=== PATIENT | female | born 1980 | race Caucasian/White ===

== ENCOUNTER 2017-12-21 16:59 | Emergency (ER) | payer OTHER ==
[~2017-12-21 16:59] MED LIST: ISOVUE-370 76%-LOCM 1 ML ONE
[2017-12-21 17:23] LABS: #Basophils 0.1 thou/uL (0.0-0.2); #Eosinphils 0.1 thou/uL (0.0-0.7); #Lymphocytes 1.7 thou/uL (1.20-3.40); #Monocytes 0.4 thou/uL (0.11-0.59); #Neutrophils 4.9 thou/uL (1.40-6.50); %Basophils 0.7 % (0.0-1.0); %Eosinophils 1.7 % (0.0-10.0); %Lymphocytes 23.2 % (21.0-51.0); %Monocytes 6.1 % (0.0-10.0); %Neutrophils 68.3 % (42.0-75.0); Hemoglobin 13.2 g/dL (12.0-16.0); Mean Corpuscular HGB CONC 33.7 g/dL (32.0-36.0); Mean Corpuscular Hemoglobin 30.1 pg (27.0-31.0); Mean Corpuscular Volume 89.4 fl (81.0-99.0); Mean Platelet Volume 7.7 fL (7.4-10.4); Platelet Count 189 thou/uL (130-400); RBC Distribution Width 11.3 % (11.5-14.5); Red Blood Cell (RBC) Count 4.37 mill/uL (4.20-5.40); White Blood Cell (WBC) Count 7.1 thou/uL (4.8-10.8)
[2017-12-21 17:30] LABS: BHCG - Serum Negative (NEGATIVE)
[2017-12-21 17:31] LABS: Pregs Control Background? CLEAR/WHITE (CLR/WHITE); Pregs Control Bar Appear? YES (CONTROL BAR)
[2017-12-21 17:37] LABS: ALT (SGPT) 9 U/L (8-55); AST (SGOT) 15 U/L (5-34); Albumin 3.9 g/dL (3.5-5.0); Alkaline Phosphatase 58 U/L (40-150); Anion Gap 11 mmol/L (10-20); BUN (Urea Nitrogen) 11 mg/dL (7.0-18.7); Bilirubin, Total 0.4 mg/dL (0.2-1.2); Calc. Creatinine Clearance 0 mL/min (70-130); Calcium 8.7 mg/dL (7.8-10.44); Carbon Dioxide 22 mmol/L (22-29); Chloride 107 mmol/L (98-107); Estimated GFR-MDRD Greater than 90; Globulin 2.8 g/dL (2.4-3.5); Glucose 150 mg/dL (70-105); Lipase 29 U/L (8-78); Potassium 3.5 mmol/L (3.5-5.1); Protein, Total 6.7 g/dL (6.0-8.3); Sodium 136 mmol/L (136-145)
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
[2017-12-21] MEDS ORDERED: Ketorolac Tromethamine 30 MG/ML VIAL ONE (18:50)
[2017-12-21] MEDS ORDERED: Morphine 4 MG/ML VIAL ONE (18:51)
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
[2017-12-21] MEDS ORDERED: Bacitracin Zinc 1 Packet ONE (19:24)
[2017-12-21] MEDS ORDERED: Ondansetron ODT 4 MG TAB ONE (19:46)
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
== END 2017-12-21 19:45 | disposition home or self-care (01) ==
LOC: ERS 16:59
DX: S22.42XA Multiple fractures of ribs, left side, initial encounter for closed fracture (principal); S40.212A Abrasion of left shoulder, initial encounter; S80.811A Abrasion, right lower leg, initial encounter; V43.52XA Car driver injured in collision with other type car in traffic accident, initial encounter
CPT/HCPCS: 70450; 71045; 71260; 72125; 72170; 74177; 80053; 83690; 84703; 85025; 86850; 86900; 86901; 96374; 96375; G0390; J1885; J2270; Q0162